=== PATIENT | female | born 1970 | race Caucasian/White ===

== ENCOUNTER 2019-08-02 07:00 | Outpatient (RCR) | payer OTHER, SELFPAY ==
--- NOTE | 2019-07-02 14:01 | HP.PTEVAL ---
Patient's Visit Information KARLA RAMOS is a 49 year old F referred to Physical Therapy by Monik Weldon NP-C with a diagnosis of CERVICALALGIA,CERVICOGENIC ZAMORA. Date of Evaluation: 07/02/19 Physical Therapist: Hermelindo Sinha, PT, Cert MDT, OCS - Visit Plan Frequency: 2x /Week Duration: 4 Weeks Plan: PT INTERVENTIIONS MANUAL THERAP -STM/CERVICAL TRACTION.MODALTIES,PROGRESS TO [facility] EX'S POSTURAL STRENGTHENING - Subjective Findings: This 49 y/o female presents to physical therapy with cervicalagia,cervicogenic ZAMORA. Patient has had cervical pain for 1 month possible straining self at work. Patient pain cervical spine to scapular L> R along with ZAMORA to frontal temporal aspect. .Patient symptoms worse flexion ,sleeping ,lifting,turning spine. Seen MATRIX PLATER provide predisone didn't help.Patient also has ZAMORA symptoms . Allevaiting factors ict hot. Pain patches. Denies parathesai/tingling.Denies dizziness/niasea. 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 Patient had no diagnostics. Patient symptoms affects QOL and function. SOCIAL: . 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 NEURO: denies parathesi/tingling ,reflexes C5--6-7 2/3. PALPATION: tender UT/LEVATOR/OCCIPUT. AROM: BUE WFL ,shoulder flexion limited by pain 150 degrrezs. MMT: 4/5 except shoulder 4-/5 limited by pain UT. CERVICAL ROM: flexionmin loss,lateral flexion/rotation mod loss,extension min loss,retraction min loss,min loss protrusion woyh pain - Special Tests C/S Radiculapathy - Left Upper limb tension test: Negative C/S Radiculapathy - Right Upper limb tension test: Negative C/S Radiculapathy - Left Spurlings: Positive C/S Radiculapathy - Right Spurlings: Positive C/S Radiculapathy - Left Cervical distraction: Negative C/S Radiculapathy - Right Cervical distraction: Negative Sharp Melisa: Negative Vertebral Artery Test: Negative Alar Ligament Test: Negative Cervical Sitting: Protrusion - Mechanical Response: No effect Cervical Sitting: Protrusion - Symptoms During Testing: Increases Cervical Sitting: Protrusion - Symptoms After Testing: Worse Cervical Sitting: Retraction - Symptoms During Testing: Increases Cervical Sitting: Retraction - Symptoms After Testing: Worse Cervical Sitting: Retraction-Extension - Mechanical Response: No effect Cerv Sitting: Retraction-Extension - Symptoms During Testing: Increases Cerv Sitting: Retraction-Extension - Symptoms After Testing: Worse Cervical Lying: Retraction - Mechanical Response: No effect Cervical Lying: Retraction - Symptoms During Testing: Increases Cervical Lying: Retraction - Symptoms After Testing: No worse - Goals Goal 1:: Independant with HEP Goal Time Frame: 4-6 Weeks Goal 2:: Independant with posture for ADL'S Goal Time Frame: 4-6 Weeks Goal 3:: Decrease cervical pain by 70 % or > to improve QOL. Goal Time Frame: 4-6 Weeks Goal 4:: Patient improve cervical ROM for function of recovery Goal Time Frame: 4-6 Weeks Goal 5:: Patient improve neck owestry score by 5 points > to improve QOL. Goal Time Frame: 4-6 Weeks Goal 6:: Patient to be d/c to prophalaxis. Goal Time Frame: 4-6 Weeks - Rehabilitation Potential Physical Therapy Diagnosis: This patient has cervical pain with possible derrangement below elbow with pain ,decrease cervical ROM,strength impairs ADL'S and job demands thus benifit from skilled PT Rehabilitation Potential: Good - Anticipated Interventions Patient/Client Instruction: Educate patient on: Condition, Plan of Care For the Purpose of:: To decrease pain, To increase ROM, To improve muscle performance and motor function, To improve ability to perform ADL's, To increase tolerance to activity/condition/position, To improve ability of physical actions for home/community/work/leisure, To improve health of tissue, To decrease soft tissue restriction, To assume or resume ADL's, To improve ability to perform tasks related to life management Therapeutic Exercise to Include: Strength training, Body mechanics, Postural training, Flexibilty training For the Purpose of:: To decrease pain, To increase ROM, To improve muscle performance and motor function, To improve ability to perform ADL's, To increase tolerance to activity/condition/position, To improve ability of physical actions for home/community/work/leisure, To improve health of tissue, To decrease soft tissue restriction, To increase flexibility/ROM, To reduce risk of recurrence, To prevent re-injury, To improve ability to perform tasks related to life management Manual Therapy Techniques to Include: Mobilization Comment: MANUAL THERAPY TRACTION For the Purpose of:: To decrease pain, To increase ROM, To improve nutrient delivery to tissue, To increase oxygenation perfusion, To improve health of tissue, To decrease soft tissue restriction, To increase flexibility/ROM TENS: Yes IF ES: Yes Cryotherapy (ice pack, ice massage): Yes Thermo therapy (hot pack): Yes Ultrasound (thermal/non thermal): Yes For the Purpose of:: To decrease swelling/inflammation, To increase ROM, To improve nutrient delivery to tissue, To increase oxygenation perfusion, To improve health of tissue, To decrease soft tissue restriction Thank you for the opportunity to evaluate your patient. For Medicare and Medicare HMO plans, please review the plan of care and approve it. It will need to be FAXED BACK to us at [phone] for Medicare purposes. For Medicare only, by signing this I certify the plan of care. Please let me know if there are questions or concerns regarding this plan of care. Physician Signature: Date:
--- NOTE | 2019-08-02 07:59 | HP.PTDCSUM ---
HP - PT D/C Summary It has been my pleasure to treat KARLA RAMOS under orders from YANELIS HdzC, for the diagnosis of CERVICALALGIA,CERVICOGENIC ZAMORA for a total of 9 visit(s). Discharge Date: 08/02/19 Please see the following information for a summary of their discharge status. - Subjective Subjective: Patient is better. I think I can do ex's at home . Cont to get some symptoms with cervical treatment. Occassional ZAMORA ,BUT better - Pain Bilateral Neck Pain Intensity (Out of 10): 2 - Overall Improvement % Improvement: 80 - Objective Objective/Function: POSTURE: WFL. MMT: 4/5 EXCEPT ANTERIOR DELTOID 4-/5. CERVICAL ROM: flexion WFL,rotation/lateral flexion min,extenion min loss ,retraction produces symptoms in arm NW - Goals Goal 1:: Independant with HEP Goal Progress: Goal Met Goal 2:: Independant with posture for ADL'S Goal Progress: Goal Met Goal 3:: Decrease cervical pain by 70 % or > to improve QOL. Goal Progress: Goal Met Goal 4:: Patient improve cervical ROM for function of recovery Goal Progress: Goal Met Goal 5:: Patient improve neck owestry score by 5 points > to improve QOL. Goal Progress: Goal Met Goal 6:: Patient to be d/c to prophalaxis. Goal Progress: Goal Met - Plan Plan: D/C TO HEP - D/C Information Discharge Comments: HEP If there are questions or concerns regarding this patient's physical therapy, please feel free to call me at [phone]. Thank you for the referral of this patient. Sincerely, Hermelindo Sinha, PT, Cert MDT, OCS
== END 2019-08-02 19:00 | disposition home or self-care (01) ==
LOC: PT 07:00
PROVIDERS: Family Provider Family Medicine; PCP Family Medicine; Referring Provider Nurse Practitioner; Visit Provider Nurse Practitioner
DX: M54.2 Cervicalgia (principal); R51 Headache
CPT/HCPCS: 97035; 97110; 97140; 97161; 97530

== ENCOUNTER 2021-01-21 15:30 | Outpatient (RCR) | payer OTHER, SELFPAY ==
--- NOTE | 2020-12-14 18:38 | HP.OTEVAL ---
Patient's Visit Information KARLA RAMOS is a 50 year old F, referred to Occupational Therapy by Dr. Abby Ortiz DC, with a diagnosis of right lateral eipicondylitis. Date of Evaluation: 12/14/20 Occupational Therapist: Dilcia Self, CECIR/Emily, CHT - Subjective This 50 year old female was seen for OT with dx of right lat. epi. pt states she has had pain in her right elbow on and off for the last year. pt works out with a pet trainer 1x week. pt states she has been working with a pet trainer since Jul. pt states this initiated in spring of last year while she was doing a lot of paint scrapping, gardening and trimming of shrubs. pt states she has tried the counter fource brace but did not feel it was helping. 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 - Pain rigth elbow 4 Pain Intensity Range: 3, 6 - ROM ROM Comments: pt demo full elbow ROM but with pain - Strength Board Lining Machine Operator: right 40# left 45# (tested with elbows at 90* flexion) Lateral Pinch: right 14# left 14# Tripod Pinch: right 18# left 20# Strength Comments: right 40# left 45# (tested with elbow at 0*) - Special Tests Lat Epiconylitis - as named: positive - Quick DASH-Disab of Arm,Shoulder& Hand Quick DASH Score: 33.3325 - Rehabilitation General Assessment: PT demo with positive symptoms of right lateral epi, and anconeus muscle of right elbow. pt is limited with ADLs due to pain and weakness. Pt would benefit from skilled OT services 1-2x week for 4 weeks to decrease pts pain and retun pt to PLOF. Today therapist ed. pt on elbow anatomy, ergon. and do's and dont's to prevent further injury. Pt demo understanding and agree to POC. Rehabilitation Potential: Good - Anticipated Interventions A/AAROM/PROM, Strengthening, Triggerpoint Release, Modalities, Orthoses, Joint Protection/Energy Conservation, Ergonomic Education, Education re Diagnosis, Home Program - Visit Plan Frequency: 2-3x /Week Duration: 4 Weeks TEXT: Thank you for the opportunity to evaluate your patient. For Medicare and Medicare HMO plans, please review the plan of care and approve it. It will need to be FAXED BACK to us at [phone] for Medicare purposes. Please let me know if there are questions or concerns regarding this plan of care. Physician Signature: Date:
--- NOTE | 2020-12-15 11:39 | HP.OTEVAL_ITS ---
Patient's Visit Information KARLA RAMOS is a 50 year old F, referred to Occupational Therapy by Dr. Abby Ortiz DC, with a diagnosis of right lateral eipicondylitis. Date of Evaluation: 12/14/20 Occupational Therapist: Dilcia Self, OTR/Emily, CHT - Subjective This 50 year old female was seen for OT with dx of right lat. epi. pt states she has had pain in her right elbow on and off for the last year. pt works out with a instructor trainer canine service 1x week. pt states she has been working with a instructor trainer canine service since Jul. pt states this initiated in spring of last year while she was doing a lot of paint scrapping, gardening and trimming of shrubs. pt states she has tried the counter fource brace but did not feel it was helping. 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 - Pain rigth elbow 4 Pain Intensity Range: 3, 6 - ROM ROM Comments: pt demo full elbow ROM but with pain - Strength Shoulder: right 4+/5 left 5/5 Elbow: right 4+/5 left 5/5 Forearm: right 4+/5 left 5/5 Wrist: right 4+/5 left 5/5 Principal Account Clerk: right 40# left 45# (tested with elbows at 90* flexion) Lateral Pinch: right 14# left 14# Tripod Pinch: right 18# left 20# Strength Comments: right 40# left 45# (tested with elbow at 0*) - Special Tests Lat Epiconylitis - as named: positive - Quick DASH-Disab of Arm,Shoulder& Hand Quick DASH Score: 33.3325 - Goals Goal:: pt will demo a increase in right shoulder and elbow mmt to 5/5 to increase ind. with lifting and yard work to limit stress on elbow by d/c Goal:: pt will report no pain greater than 1/10 with use of right UE with ADLs and IADls by d/c Goal:: pt will demo understanding of lift ergonomics to prevent elbow strain by end of 2nd visit. - Rehabilitation General Assessment: PT demo with positive symptoms of right lateral epi, and anconeus muscle of right elbow. pt is limited with ADLs due to pain and weakness. Pt would benefit from skilled OT services 1-2x week for 4 weeks to decrease pts pain and retun pt to PLOF. Today therapist ed. pt on elbow anatomy, ergon. and do's and dont's to prevent further injury. Pt demo understanding and agree to POC. Rehabilitation Potential: Good - Anticipated Interventions A/AAROM/PROM, Strengthening, Triggerpoint Release, Modalities, Orthoses, Joint Protection/Energy Conservation, Ergonomic Education, Education re Diagnosis, Home Program - Visit Plan Frequency: 2-3x /Week Duration: 4 Weeks General Plan: initiate shoulder isometrics add tri/biceps as able along with eccentric wrist TEXT: Thank you for the opportunity to evaluate your patient. For Medicare and Medicare HMO plans, please review the plan of care and approve it. It will need to be FAXED BACK to us at [phone] for Medicare purposes. Please let me know if there are questions or concerns regarding this plan of care. Physician Signature: Date:
--- NOTE | 2021-05-31 16:22 | HP.OTDCSUM_ITS ---
It has been my pleasure to treat REBECCA RAMOS under orders from Dr. Abby Ortiz DC, for the diagnosis of right lateral eipicondylitis for a total of 7 visit(s). Please see the following information for a summary of their discharge status. % Improvement: 50 Objective/Function: right crotch piece baster elbow bent 45# with pain at elbow. right crotch piece baster with elbow straight 25# and pain Patient Goals: Decrease Pain Goal:: pt will demo a increase in right shoulder and elbow mmt to 5/5 to incr ease ind. with lifting and yard work to limit stress on elbow by d/c Goal:: pt will report no pain greater than 1/10 with use of right UE with ADLs and IADls by d/c Goal:: pt will demo understanding of lift ergonomics to prevent elbow strain by end of 2nd visit. Plan: pt has not scheduled further OT apts and due to time lapse in services pt d.c at this time. Discharge Comments: pt has been seen for 7 OT visit- we have ed. pt on elbow/wrist ergo- use of bandit (counter fource brace_ ice and heat as need If there are questions or concerns regarding this patient's occupational therapy, please fell free to call me at [phone]. Thank you for the referral of this patient. Sincerely, Dilcia Self, OTR/L, CHT
== END 2021-01-21 19:00 | disposition home or self-care (01) ==
LOC: OT 15:30
PROVIDERS: PCP Family Medicine; Referring Provider Chiropractor; Visit Provider Chiropractor
DX: M77.11 Lateral epicondylitis, right elbow (principal)
CPT/HCPCS: 97035; 97110; 97140; 97166; 97530

== ENCOUNTER 2021-05-20 05:59 | Day surgery (SDC) | payer OTHER, SELFPAY ==
[2021-02-04 11:37] VITALS: BMI 28.5
--- NOTE | 2021-05-17 13:07 | NURSING ---
Addendum entered by Katy Young 05/17/21 13:07: This RN clarified if there was a better time for the PAT call. Pt declined different time. Original Note: During phone interview forez REILLY, pt was talking with someone else througout the interview.
[2021-05-18 08:53] LABS: Hematocrit 44.1 % (37-47); Hemoglobin 14.6 g/dL (12.0-15.0); Mean Corp Hgb Conc 33.1 g/dL (32-36); Mean Corpuscular Hgb 31.2 pg (27.0-32.0); Mean Corpuscular Volume 94.2 fL (81-99); Mean Platelet Vol. 10.2 fl (6.2-12.0); Platelet Count 295 K/mm3 (150-450); RBC Distribution Width SD 44.7 fl (35.1-43.9); Red Blood Count 4.68 M/mm3 (4.2-5.4); White Blood Count 8.9 K/mm3 (4.4-11.0)
[2021-05-20] VITALS (8 sets, daily range): BP systolic 132–149; BP diastolic 72–97; PULSE 61–74; RESP 16; TEMP 36.2–36.6; O2SAT 94–99; BMI 30.8
[2021-05-20 06:29] LABS: Internal QC Validated? YES +Cl - CLEAR BKGD; Pregnancy, Urine Negative Negative
[2021-05-20] MEDS: Lactated Ringers 1,000 ML 100 ML IV (06:47)
[2021-05-20] MEDS: Levonorgestrel IUD (Liletta) 1 EACH INTRA-UTER (07:27)
--- NOTE | 2021-05-20 07:30 | EMB_PTH ---
PATIENT: REBECCA RAMOS LOC: [facility] [place] U#:[id number] AGE/SX: 50/F ROOM: RE05/20/[address]: Dr. Kylah Catalan DO : 1970 BED: DIS: 05/20/2021 SPEC #: [id number] RECD: 05/20/21 13:40 STATUS: KATEY REBang #: [id number] AVIVA: 05/20/21 07:[address]: Kylah Catalan DEPT: SURGICAL PATHOLOGY RECD BY: Nydia Wheeler ENTERED: 05/21/21 08:41 SP TYPE: ENDOM BX/C OTHR DR: Dr. Jai Marmolejo MD Tissues: Endometrium, NOS Procedures: Surgery Specimen Level IV HEADER OPERATION: Hysteroscopy, dilation and curettage Symphion PRE-OP DIAGNOSIS: Dysfunction uterine bleeding; polyp on pelvic ultrasound TISSUE SUBMITTED: Endometrial curettings MICROSCOPIC DIAGNOSIS Endometrial curettings: Weakly proliferative endometrium with focal cystic changes. Focal changes consistent with exogenous hormone effect. Fragments of myometrium. See comment. HAY:stevo 05/24/2021 COMMENT A few of the fragments with polypoid appearance also shows area of hyalinization associated with acute inflammation, may represent fragments of benign inflamed polyp. Clinical correlation is necessary. Case has been reviewed in consultation with Dr. Ni who concurs with the above diagnosis. IDC:AM MICROSCOPIC DESCRIPTION Slides are reviewed. GROSS DESCRIPTION Received in fixative is one container labeled with the patient's name and designated endometrial curettings. The specimen consists of multiple fragments of hemorrhagic soft tissue mixed with blood clot that in aggregate measure 5 x 3 x 0.3 cm. The entire specimen is submitted in two cassettes. / HAY:stevo 05/21/21 TC:5 CPT: 49486
--- NOTE | 2021-05-20 07:30 | PCM.HP.OB ---
HPI - General HPI Narrative REBECCA RAMOS, is a 50 F who presents with DUB. Has IUD in place. Pelvic US shows polyp. PFSH PFSH Medical History (Updated 05/20/21 @ 07:[address] Kylah Catalan DO) Alcohol use hypothryoid Non-smoker Wears contact lenses Home Medications levothyroxine 75 mcg tablet 75 mcg PO DAILY 08/20/20 [History Last Taken 05/20/21] multivit with issudsaq-veav-CA-lutein 8 mg iron-400 mcg-300 mcg tablet 1 tab PO DAILY 08/20/20 [History Last Taken Unknown] Allergy/AdvReac Type Severity Reaction Status Date / Time erythromycin base AdvReac Intermediate Rash Verified 05/17/21 12:40 penicillin V AdvReac Intermediate Rash Verified 05/17/21 12:40 Family History Mother Thyroid disorder Elizabeth's disease Aunt Thyroid disorder Elizabeth's disease Colon cancer Grandmother Thyroid disorder Elizabeth's disease CVA (cerebral vascular accident) Osteoporosis Grandfather Myocardial infarction Heart disease CVA (cerebral vascular accident) Father Hypertension Skin cancer Surgical History (Updated 05/17/21 @ 12:44 by Katy Young) History of eye surgery History of vulvectomy Social History Smoking Status: Never smoker alcohol intake: current alcohol intake frequency: a few times a month Alcohol type: wine what type of physical activity do you participate in: aerobics, weight training and other details: Ice Hockey frequency: 3-4 times per week Vital Signs Vital Signs Vital Signs: 05/20/21 06:30 05/20/21 06:32 Temperature 97.8 F Temperature Source Temporal Pulse Rate 69 Respiratory Rate 16 Respiratory Pattern Normal Blood Pressure 134/72 H Blood Pressure Mean 92 Blood Pressure Source Monitor Blood Pressure Position Semi-Fowlers Blood Pressure Location Left Arm Pulse Ox 96 Oxygen Delivery Method Room Air Weight Weight: 191 lb 2.252 oz Body Mass Index (BMI) 30.8 Physical Exam Const alert and no apparent distress General Appearance: comfortable HEENT Head and Scalp: normal to inspection Chest Chest: symmetrical chest wall rise Resp normal respiratory effort Effort and Inspection: able to speak in complete sentences Cardio regular rate and regular rhythm GI soft to palpation, non-tender and non-distended Labs Labs Labs: Blood Type A POSITIVE Antibody Screen NEGATIVE Hct 44.1 % (37-47) Hgb 14.6 g/dL (12.0-15.0) Assessment & Plan (1) DUB (dysfunctional uterine bleeding): PLAN: Pelvic US shows polyp. Discussed there may not be a polyp present at time of surgery. Discussed pap smear, IUD removal, hysteroscopy, polypectomy, D&C, progesterone IUD insertion including r/b/a. Patient desires to proceed with surgery.
--- NOTE | 2021-05-20 08:21 | PCM.DC ---
Discharge Instructions Follow Up Care Test Results: Test results from this visit will be discussed in further detail at your follow-up appointment, if applicable. Discharge Plan Admission Primary Reason for Your Visit: Abnormal uterine bleeding Attending Provider: Kylah Catalan Primary Care Provider: Jai Marmolejo Instructions Additional Instructions / Restrictions: Nothing in the vagina for 1 week. No tampons, intercourse, hot tubs, tub baths, or pools. Discharge Orders/Prescriptions Prescriptions: Continued levothyroxine [Synthroid] 75 mcg tablet 75 mcg PO DAILY RF: 0 Centrum Silver Women 8 mg iron-400 mcg-300 mcg tablet 1 tab PO DAILY RF: 0 Referrals / Follow Up: Jai Marmolejo MD [Primary Care Provider] - Disposition Disposition (needs filled in before D/C Order can be placed): Home, Self Care
--- NOTE | 2021-05-20 08:23 | PCM.OP.BLANK ---
Operative Report Error - see other op report
--- NOTE | 2021-05-20 08:23 | PCM.OPRPT ---
Problems Associated Problem List Diagnoses (1) DUB (dysfunctional uterine bleeding): Report of Operation Date of Procedure: 05/20/21 Pre-Operative Diagnosis: DUB, polyp present on pelvic US Post-Operative Diagnosis: DUB Surgery/Procedure Performed:: Cervical pap smear, IUD removal, hysteroscopy, D&C, IUD placement The patient was taken to the operating room where MAC anesthesia was found to be adequate. A speculum was placed in the vagina and a Pap smear was obtained. She was then prepped and draped in the dorsal lithotomy position using yellowfin stirrups. A weighted speculum was placed in the vagina to expose the cervix. A tenaculum was placed on the anterior lip of the cervix. Using ring forceps the IUD strings were grasped and the IUD was removed easily and intact. The cervix was already dilated. The uterus sounded to 8 cm. The hysteroscope was advanced to the fundus of the uterus, and the uterus was distended using normal saline as distention media. A normal-appearing uterine cavity was visualized. Bilateral tubal ostia were visualized. Pictures were taken. No polyp noted. No fibroids noted. The hysteroscope was then removed from the uterus. A sharp curettage was performed for a moderate amount of tissue. Endometrial curettings were sent to pathology for review. The Liletta IUD was inserted in usual fashion, and the strings were trimmed to 2 cm. Bleeding was hemostatic. All instruments removed from the vagina. A vaginal sweep was performed. Instrument sponge counts were correct. Patient was taken recovery room in stable condition. Serina lot number: [id number] Description of Surgical Findings:: Normal appearing uterine cavity and bilateral tubal ostia visualized. Good descent of uterus and cervix. No polyps or fibroids noted. Surgeon: Kylah Catalan employment program representative: None Type of Anesthesia: MAC Special Medications: None Specimen's removed: Endometrial curettings Drains: None Estimated Blood Loss (mL): < 50 cc Fluids Replaced: 0 cc fluid deficit Grafts/Implants Used: Levonorgestrel IUD Procedure Start Time: 07:47 Procedure Stop Time: 08:19 Complications None Admit VTE Documentation VTE Present on Admission: No VTE Mechan Device Prophylaxis: SCD's VTE Pharm Prophylaxis ordered?: No
[2021-05-20] MEDS: HYDROcodone Bitartrate/Apap 5/325 Tablet PO (09:37)
[2021-05-26 10:04] LABS: HPV HC, High Risk Negative
== END 2021-05-20 10:45 | disposition home or self-care (01) ==
LOC: SDC 06:00 → AC 06:01
PROVIDERS: PCP Internal Medicine; Referring Provider Obstetrics & Gynecology; Visit Provider Obstetrics & Gynecology
PROC: 0UB98ZZ Excision of Uterus, Via Natural or Artificial Opening Endoscopic (ICD-10-PCS; CPT 58558; principal; 2021-05-20 07:15)
DX: N93.8 Other specified abnormal uterine and vaginal bleeding (principal); E03.9 Hypothyroidism, unspecified; Z79.899 Other long term (current) drug therapy; M99.01 Segmental and somatic dysfunction of cervical region; M99.02 Segmental and somatic dysfunction of thoracic region; M99.03 Segmental and somatic dysfunction of lumbar region
CPT/HCPCS: 58300; 58301; 58558; 36415; 81025; 85027; 86850; 86900; 86901; 87624; 88175; 88305; J7120; G0145; J2405

== ENCOUNTER 2021-12-01 16:04 | Outpatient (CLI) | payer OTHER, SELFPAY ==
[2021-12-01 16:13] VITALS: BP 166/79; PULSE 82; RESP 16; TEMP 36.5; O2SAT 100; BMI 26.9
[2021-12-01] MEDS: 0.9% Saline Lock 10 ML Syringe IV (16:17)
[2021-12-01 16:50] VITALS: BP 118/71; PULSE 59; RESP 16; TEMP 36.9; O2SAT 100
[2021-12-01 17:43] VITALS: BP 137/83; PULSE 63; RESP 16; TEMP 37; O2SAT 100
== END 2021-12-01 23:59 | disposition home or self-care (01) ==
LOC: MS3OUT 16:05 → MS3 16:05
PROVIDERS: PCP Internal Medicine; Referring Provider Nurse Practitioner Adult Health; Visit Provider Nurse Practitioner Adult Health
DX: Z23 Encounter for immunization (principal); U07.1 COVID-19; E66.9 Obesity, unspecified; Z68.27 Body mass index [BMI] 27.0-27.9, adult
CPT/HCPCS: J7050; M0247; A4216; Q0247

== ENCOUNTER 2022-01-12 16:09 | Outpatient (CLI) | payer OTHER, SELFPAY ==
--- NOTE | 2022-01-12 16:16 | MRI_ITS ---
STUDY: MRI BRAIN WITH AND WITHOUT CONTRAST (ATTENTION INTERNAL AUDITORY CANALS - I.A.C.''s) REASON FOR EXAM: Female, 51 years old. LT UNILATERAL HEARING LOSS TECHNIQUE: Standardized multiplanar fat and water weighted pulse sequences were obtained. 15ML IV DOTAREM was administered for the contrast portion of the examination. COMPARISON: None. FINDINGS: Normal bilateral temporal bones. Normal bilateral internal auditory canals. There is no demonstrated intracanalicular or cisternal vestibular schwannoma (acoustic neuroma). There is no enhancement of the bilateral VIIth or VIIIth cranial nerves. Normal bilateral cochlea, vestibules and semicircular canals. Normal size of the ventricles and extra-axial spaces for the patient''s age. T2 FLAIR hyperintensity focus in the left central lobe subcortical white matter did not enhance with intravenous contrast. No obvious mass effects. This is nonspecific gliosis. Normal remaining white matter of the cerebral hemispheres. Normal bilateral basal ganglia. Normal thalami. Normal flow voids within the major intracranial circulation suggesting patency by spin echo criteria. Normal venous enhancement. There is no enhancing intra-axial or extra-axial abnormality. There is no extra-axial fluid accumulation. Normal sella turcica, pituitary gland, infundibular stalk, optic chiasm and hypothalamus. Normal tectal plate and pineal gland. Normal midbrain, juanita and medulla. Normal cerebellum. Normal basal cisterns. No demonstrated orbital abnormality, within the constraints of a routine brain study. Normal visualized paranasal sinuses. Normal calvarium and skull base. Normal visualized soft tissue structures. Normal visualized upper cervical spine. MRI/Brain W/WO Contrast IMPRESSION: 1. Normal unenhanced and enhanced MRI of the bilateral internal auditory canals (I.A.C''s). 2. Solitary nonspecific T2 FLAIR hyperintensity focus without mass effects and without contrast enhancement in the left central lobe subcortical white matter is presumably nonspecific gliosis. Electronically Signed: Bernabe Loyola MD at 9:49 EDT ,
== END 2022-01-12 23:59 | disposition home or self-care (01) ==
PROVIDERS: PCP Internal Medicine; Visit Provider Otolaryngology Otolaryngology/Facial Plastic Surgery
DX: H90.42 Sensorineural hearing loss, unilateral, left ear, with unrestricted hearing on the contralateral side (principal)
CPT/HCPCS: 70553; A9575